=== PATIENT | male | born 1970 | race Caucasian/White ===

== ENCOUNTER 2016-05-20 22:35 | Emergency (ER) | payer SELFPAY ==
--- NOTE | 2016-05-20 23:47 | ERNOTE ---
Medical Problem HPI - Narrative Date of Service: 05/20/16 - buttock pain - General Chief Complaint: General Assessment Time Seen by Provider: 05/20/16 23:46 Source: patient Exam Limitations: no limitations - Immun/Allergies/Home Medications Immunizations: IMMUNIZATION HX Immunizations Up to Date Yes History of Influenza Vaccine Yes Hx Pneumococcal Vaccination No Allergies/Adverse Reactions: Allergies codeine [Codeine] Adverse Reaction (Intermediate, Verified 08/03/15 03:40) Vomiting vomiting and h/a with codeine Home Medications: HOME MEDICATIONS Clindamycin HCl [Cleocin HCl] 300 mg PO TID #30 capsule 05/21/16 [Last Taken Unknown] - History of Present History Narrative: Patient here for right cheek lesion, that is painful, no known trauma, cleaning attic 1 wk ago but is notably red and painful Date (Duration): 05/20/16 Time (Timing): 08:00 Timing: constant, getting worse Severity: mild Modifying Factors - (Worsens): Present: immobilization - no rectal drainage, Review of Systems - Review of Systems Constitutional: Present: no symptoms reported, decreased activity level ENT: Present: no symptoms reported, sore throat Respiratory: Present: orthopnea Genitourinary: Present: no symptoms reported Musculoskeletal: Present: no symptoms reported Skin: Present: no symptoms reported Neurological: Present: no symptoms reported Endocrine: Present: no symptoms reported Hematologic/Lymphatic: Present: no symptoms reported Psych: Present: no symptoms reported - Patient's Past Medical History Patient History - Medical: No pertinent hx Patient History - Cardiac/Respiratory: Asthma Patient History - Cancer: No Hx of Cancer Patient History - Surgical Procedures: Appendectomy, Other Patient History - Other: None - Family History Mother Family History - Medical: No pertinent hx Father Family History - Medical: History Unknown - Social History Living Situations: home Abuse History: No History of abuse Psych History: No pertinent hx Smoking Status: Current every day smoker Have you smoked in the past 12 months: Yes Patient requests Smoking Cessation Consult: No Initiate information on Smoking Cessation: No Alcohol Use: none Drug Use: none - Immunizations Immunizations Up to Date: Yes Hx Pneumococcal Vaccination: No History of Influenza Vaccine: Yes Physical Exam - Physical Exam General Appearance: Present: wd/wn, mild distress, other - due to pain in buttock Eye Exam: Normal inspection: bilateral, PERRL: bilateral, EOMI: bilateral Ears, Nose, Throat: Present: normal ENT inspection Neck: Present: normal inspection, nontender Respiratory: Present: no respiratory distress, normal breath sounds, no accessory muscle use, chest nontender, lungs clear Cardiovascular/Chest: Present: regular rate, rhythm, no murmur Gastrointestinal/Abdominal: Present: normal bowel sounds, nontender, nondistended, no organomegaly Rectal Exam: Present: nontender, normal prostate, tenderness, other - carbuncle noted on right cheek, lesion is not fluctuan Male Genitals Exam: Present: normal genitalia, inguinal tenderness Back Exam: Present: normal inspection Neurological Exam: Present: alert, oriented, normal mood/affect Skin Exam: Present: normal color, other - redness on buttock area as mentioned giuliana ED Progress - Date and Time Seen: Date and Time: 05/21/16 10:05 post toradol pain was much improved and was able to sit down. - Vital Signs Vital Signs: Vital Signs 05/20/16 22:44 Temperature 36.7 C Pulse Rate 97 Respiratory 18 Rate Blood Pressure 142/71 O2 Sat by Pulse 97 Oximetry - Progress/Reassessment Chief Complaint: General Assessment Progress:: Improved Plan - Plan Plan: Notable perirectal redness consistent with carbuncle Departure - Departure Clinical Impression: Carbuncle and furuncle of buttock Disposition: Home self-care Condition: Good Instructions: Abscess, [id number] Print Language: Georgian Additional Instructions: You will need to continue oral medication for 7 to 10 days for the infection of right cheek Patient will need close follow up with his primary provider, and surgeon for possible I&D if necessary Referrals: Rayo Robles MD [Staff Physician] - Prescriptions: Clindamycin HCl [Cleocin HCl] 300 mg PO TID #30 capsule
--- OUTSIDE RECORDS SUMMARY | 2016-05-20 23:56 | XMS REPORT | Continuity of Care Document ---
:1970 Author Organization [facility] [place] [address] Care Team Providers Name Role Phone Unavailable Primary Care Provider Unavailable Source Comments This disclosure is being made pursuant to the [facility] program and maynot contain all information available regarding this patient.[facility] Active Allergies and Adverse Reactions Not on File Current Medications Be aware that medications may not be up to date as of this document. Alwaysverify current medications with the patient. Not on file Active Problems Not on file Social History Tobacco Use Types Packs/Day Years Used Date Never Assessed Plan of Care Health Maintenance Due Date Last Done Comments Retired-Pertussis Vaccine Adult 09/07/1987 Retired-Tetanus Vaccine Adult 09/07/1987 Retired-INFLUENZA VACCINE 10/14/2014 Results from Last 3 Months Not on file
[2016-05-20] MEDS ORDERED: KETOROLAC TROMETHAMINE 30 MG/ML VIAL IV ONE (23:58)
[2016-05-21] MEDS ORDERED: CLINDAMYCIN PHOSPHATE 150 MG/ML VIAL IV ONE (00:03)
[2016-05-21] MEDS ORDERED: KETOROLAC TROMETHAMINE 30 MG/ML VIAL ONE (00:05)
[2016-05-21 00:14] LABS: Hemoglobin 15.7 gm/dL (13.5-18.0); Mean Cell Volume 93.8 fl (78-100); Mean Corpuscular Hemoglobin 33.5 pg (27-31); Mean Corpuscular Hgb Conc 35.7 g/dl (32-36); Mean Platelet Volume 9.6 fl (6.0-9.5); Neutrophil # 6.5 K/mm3 (1.3-6.0); Neutrophil % 56.5 % (42-75.0); Platelet Count 245 K/mm3 (150-450); Red Blood Count 4.69 M/mm3 (4.7-6.0); Red Cell Distribution Width 13.2 % (11.5-14.0); White Blood Count 11.6 K/mm3 (4.0-10.5)
[2016-05-21 00:20] LABS: Anion Gap 11.3 mmol/L (6.8-13.8); BUN/Creatinine Ratio 14.8 (9.0-21.6); Calcium * 8.7 mg/dL (7.9-10.9); Carbon Dioxide 28.2 mmol/L (24-32.6); Estimated Creat Clear 95.6; Potassium 3.5 mmol/L (3.4-4.6)
[2016-05-21] MEDS ORDERED: CLINDAMYCIN PHOSPHATE 600 MG in DEXTROSE 5 % IN WATER 100 ML IV ONE ×2 (00:30)
[2016-05-21 01:27] VITALS: BP 126/81
== END 2016-05-21 01:02 | disposition home or self-care (01) ==
LOC: ER 22:35
DX: L02.33 Carbuncle of buttock (principal); L02.32 Furuncle of buttock; F17.210 Nicotine dependence, cigarettes, uncomplicated

== ENCOUNTER 2017-01-20 01:03 | Emergency (ER) | payer MEDICAID ==
[2017-01-20] MEDS ORDERED: ALBUTEROL SULFATE 2.5 MG/0.5 ML VIAL.NEB IH ONE ×4 (01:10→01:33)
[2017-01-20] MEDS ORDERED: ACETAMINOPHEN 500 MG TABLET PO ONE (01:11)
[2017-01-20] MEDS ORDERED: DEXAMETHASONE SOD PHOSPHATE 10 MG/ML VIAL IV ONE (01:12)
[2017-01-20] MEDS ORDERED: DEXAMETHASONE SOD PHOSPHATE 10 MG/ML VIAL ONE (01:20)
[2017-01-20 01:25] LABS: Hematocrit 42.2 % (42.0-52.0); Hemoglobin 15.7 gm/dL (13.5-18.0); Mean Corpuscular Hgb Conc 37.2 g/dl (32-36); Mean Platelet Volume 9.7 fl (6.0-9.5); Neutrophil # 5.2 K/mm3 (1.3-6.0); Neutrophil % 50.3 % (42-75.0); Platelet Count 255 K/mm3 (150-450); Red Blood Count 4.49 M/mm3 (4.7-6.0); Red Cell Distribution Width 13.1 % (11.5-14.0); White Blood Count 10.4 K/mm3 (4.0-10.5)
[2017-01-20 01:49] LABS: ALT 26 U/L (19-67); AST 16 U/L (0-48); Albumin * 3.5 gm/dl (3.4-5.0); Alkaline Phosphatase * 95 U/L (50-170); Anion Gap 11.3 mmol/L (6.8-13.8); BNP * 69 pg/mL (5-140); BUN/Creatinine Ratio 11.1 (9.0-21.6); Bilirubin, Total 0.3 mg/dL (0.0-1.1); Blood Urea Nitrogen 12 mg/dL (6-23); Ca. Corrected For Albumin 8.7 mg/dL (8.4-10.2); Calcium * 8.6 mg/dL (7.9-10.9); Carbon Dioxide 27.2 mmol/L (24-32.6); Chloride 103 mmol/L (97-106); Glucose * 130 mg/dL (70-110); Potassium 3.5 mmol/L (3.4-4.6); Sodium 138 mmol/L (132-142); Total Protein 7.5 gm/dL (6.2-8.2)
[2017-01-20 01:50] LABS: Troponin I Less than 0.017 ng/ml (0.00-0.10)
--- NOTE | 2017-01-20 02:00 | ERNOTE ---
Dyspnea - Date Date of Service: 01/20/17 - General Presenting Symptoms: shortness of breath Time Seen by Provider: 01/20/17 03:38 Source: patient - Immun/Allergies/Home Medications Immunizations: IMMUNIZATION HX Immunizations Up to Date Yes History of Influenza Vaccine No Hx Pneumococcal Vaccination No Allergies/Adverse Reactions: Allergies codeine [Codeine] Adverse Reaction (Intermediate, Verified 01/18/17 11:22) Vomiting vomiting and h/a with codeine Home Medications: HOME MEDICATIONS Albuterol Sulfate [Proair Hfa] 2 puff IH QID PRN 01/18/17 [Last Taken Unknown] oxyCODONE HCL/ACETAMINOPHEN [Percocet 5-325 mg Tablet] 1 each PO Q8H PRN #15 tablet 01/18/17 [Last Taken Unknown] Albuterol Sulfate [Proair Hfa] 1 - 2 puff IH Q4H PRN #1 inhaler 01/20/17 [Last Taken Unknown] predniSONE [Prednisone] 1 tab PO BID #8 tab 01/20/17 [Last Taken Unknown] - History of Present Illness Narrative: 46 year old Complaints of shortness of breath for the last two days that has gotten worse. Burning sensation in the substernal area that radiates to the neck x 2 days that has gotten worse. This morning he awoken with a severe frontal headache. Denies any N/V, fevers or chills. 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 Denies: weakness Review of Systems - Review of Systems Constitutional: Present: no symptoms reported EYE: Present: no symptoms reported ENT: Present: no symptoms reported Respiratory: Present: See HPI Cardiology: Present: See HPI Gastrointestinal/Abdominal: Present: no symptoms reported Genitourinary: Present: no symptoms reported Musculoskeletal: Present: no symptoms reported Skin: Present: no symptoms reported Neurological: Present: no symptoms reported Endocrine: Present: no symptoms reported Hematologic/Lymphatic: Present: no symptoms reported - Patient's Past Medical History Patient History - Medical: No pertinent hx Patient History - Cardiac/Respiratory: Asthma Patient History - Cancer: No Hx of Cancer Patient History - Surgical Procedures: Appendectomy, Other Patient History - Other: None - Family History Mother Family History - Medical: No pertinent hx Father Family History - Medical: History Unknown - Social History Living Situations: home Abuse History: No History of abuse Psych History: No pertinent hx Smoking Status: Current every day smoker Alcohol Use: none Drug Use: none - Immunizations Immunizations Up to Date: Yes Hx Pneumococcal Vaccination: No History of Influenza Vaccine: No Physical Exam - Physical Exam General Appearance: Present: mild distress Head Exam: Present: normal inspection Eye Exam: Normal inspection: bilateral, PERRL: bilateral, EOMI: bilateral Ears, Nose, Throat: Present: normal ENT inspection Neck: Present: normal inspection, supple, full range of motion Respiratory: Present: no respiratory distress Cardiovascular/Chest: Present: regular rate, rhythm Gastrointestinal/Abdominal: Present: nondistended Back Exam: Present: normal inspection Extremity Exam: Present: normal inspection Neurological Exam: Present: alert, oriented, normal mood/affect Skin Exam: Present: normal color ED Progress - Results and Orders Patient's Lab Results:: I have reviewed the patient's lab results. - Vital Signs Patient's Vital Signs:: I have reviewed the patient's vital signs. Vital Signs: Vital Signs 01/20/17 01/20/17 01/20/17 01:07 01:15 01:20 Temperature 36.7 C Pulse Rate 95 77 78 Respiratory 27 H 20 16 Rate Blood Pressure 146/87 142/80 O2 Sat by Pulse 94 94 92 Oximetry 01/20/17 01/20/17 01:25 01:34 Temperature Pulse Rate 79 81 Respiratory 20 20 Rate Blood Pressure O2 Sat by Pulse 92 Oximetry - EKG EKG: NSR EKG read: Interp. by me EKG Comments: RAD, rate 79, - X-Ray X-Ray #1 X-Ray: chest Interpretation: Interp. by me - CT/Ultrasound CT/Ultrasound Narrative: CT head-no acute disease. - Progress/Reassessment Chief Complaint: Dyspnea Progress:: Improved Progress Note-Subjective: 01/20/17 02:56 He was observed to be sleeping, and had to be awakened. Breathing has improved by 100% after Albuterol 10 mg treatments. Headache decrease with Tylenol,, but still present. Given Reglan 10 mg IV, Benadryl 25 mg IV, Ketorlac 30 mg IV. 01/20/17 03:16 01/20/17 03:32 The headache has completely resolved. The O2 sat was maintained at 92% after ambulation. Chest burning resolved after GI cocktail. 01/20/17 03:35 Departure Clinical Impression: Migraine, Exacerbation of asthma - Departure Disposition: Home self-care Condition: Fair Instructions: Migraine Headache, [id number], Asthma, Adult, [id number], Asthma, Acute Bronchospasm Print Language: Malawian Additional Instructions: Return to the ED as needed. Prescriptions: Albuterol Sulfate [Proair Hfa] 1 - 2 puff IH Q4H PRN #1 inhaler PRN Reason: Shortness Of Breath predniSONE [Prednisone] 1 tab PO BID #8 tab
[2017-01-20] MEDS ORDERED: LIDOCAINE HCL 20 ML UDC PO ONE (02:12)
[2017-01-20] MEDS ORDERED: MAG HYDROX/ALUMINUM HYD/SIMETH 30 ML UDC PO ONE (02:12)
[2017-01-20] MEDS ORDERED: BELLADONNA ALKALOIDS/PHENOBARB 60 ML BTL PO ONE (02:13)
[2017-01-20] MEDS ORDERED: KETOROLAC TROMETHAMINE 30 MG/ML VIAL IV ONE (03:04)
[2017-01-20] MEDS ORDERED: diphenhydrAMINE HCL 50 MG/ML VIAL IV ONE (03:04)
[2017-01-20] MEDS ORDERED: METOCLOPRAMIDE HCL 5 MG/ML VIAL IV ONE (03:04)
[2017-01-20] MEDS ORDERED: METOCLOPRAMIDE HCL 5 MG/ML VIAL ONE (03:09)
[2017-01-20] MEDS ORDERED: KETOROLAC TROMETHAMINE 30 MG/ML VIAL ONE (03:09)
[2017-01-20] MEDS ORDERED: diphenhydrAMINE HCL 50 MG/ML VIAL ONE (03:09)
[2017-01-20 03:20] VITALS: BP 126/65
== END 2017-01-20 03:33 | disposition home or self-care (01) ==
LOC: ER 01:03
DX: J45.901 Unspecified asthma with (acute) exacerbation (principal); G43.909 Migraine, unspecified, not intractable, without status migrainosus; F17.200 Nicotine dependence, unspecified, uncomplicated